=== PATIENT | female | born 1965 | race Caucasian/White ===

== ENCOUNTER 2018-09-11 08:26 | Emergency (ER) | payer OTHER ==
[~2018-09-11] VITALS: Ht 152.4 cm; Wt 53.5 kg
[2018-09-11 08:28] VITALS: BP 132/76
== END 2018-09-11 10:56 | disposition home or self-care (01) ==
LOC: ED 10:13
DX: S40.011A Contusion of right shoulder, initial encounter (principal); W18.39XA Other fall on same level, initial encounter; Y93.89 Activity, other specified; Y92.830 Public park as the place of occurrence of the external cause; Y99.8 Other external cause status
CPT/HCPCS: 73030; 73060; 96372; 99283; J1885

== ENCOUNTER 2019-01-29 12:19 | Day surgery (SDC) | payer OTHER ==
[~2019-01-29] VITALS: Ht 152.4 cm; Wt 51.0 kg
[~2019-01-29 12:19] MED LIST: LIDOCAINE/PF 1%-EPI 1:200K, 30 ML ONE
[2019-01-29 12:51] VITALS: BP 164/79
[2019-01-29] MEDS ORDERED: LACTATED RINGERS 1,000 ML IV SCH (12:56)
[2019-01-29] MEDS ORDERED: TRAZ50TA66 PO (13:05)
[2019-01-29] MEDS ORDERED: FLUO20CA19 PO (13:05)
[2019-01-29] MEDS ORDERED: CELE200C PO (13:05)
[2019-01-29] MEDS ORDERED: NAPR-685 PO (13:05)
[2019-01-29] MEDS ORDERED: MIDAZOLAM 1 MG/ML, 2ML ONE (13:28)
[2019-01-29] MEDS ORDERED: ALPR1TAB2 PO (13:28)
[2019-01-29] MEDS ORDERED: METH750T2 PO (13:28)
[2019-01-29] MEDS ORDERED: FENTANYL PF 250 MCG/5ML ONE (13:28)
[2019-01-29] MEDS ORDERED: DEXAMETHASONE 4 MG/ML, 1ML ONE (15:27)
[2019-01-29] MEDS ORDERED: ONDANSETRON 2MG/ML, 2ML ONE (15:27)
[2019-01-29] MEDS ORDERED: SUCCINYLCHOLINE 20 MG/ML, 10ML ONE (15:27)
[2019-01-29] MEDS ORDERED: PROPOFOL 10 MG/ML, 20ML ONE (15:27)
[2019-01-29] MEDS ORDERED: [UNRECOGNIZED DRUG - OTHER] IM ONE (15:27)
[2019-01-29] MEDS ORDERED: CEFAZOLIN 1,000 MG ONE (15:27)
[2019-01-29] MEDS ORDERED: CLINDAMYCIN 150 MG/ML, 6ML ONE (15:36)
[2019-01-29] MEDS ORDERED: KETOROLAC 30 MG/1 ML IV PRN (16:00)
[2019-01-29] MEDS ORDERED: OXYcodone 5 MG/5 ML ORAL.SOL UDC PO PRN (16:00)
[2019-01-29] MEDS ORDERED: hydrALAzine 20 MG/ML, 1ML IV PRN (16:00)
[2019-01-29] MEDS ORDERED: MEPERIDINE/PF 25MG/0.5ML IVPush PRN (16:00)
[2019-01-29] MEDS ORDERED: FENTANYL PF 100 MCG/2ML IV PRN (16:00)
[2019-01-29] MEDS ORDERED: METOCLOPRAMIDE 5 MG/ML, 2ML IV PRN (16:00)
[2019-01-29] MEDS ORDERED: PROMETHAZINE 25 MG/ML, 1ML IV PRN (16:00)
[2019-01-29] MEDS ORDERED: HYDROmorphone 1 MG/ML, 1ML INJ IV PRN (16:00)
[2019-01-29] MEDS ORDERED: ALBUTEROL SULFATE 2.5 MG/3 ML NPPB PRN (16:00)
[2019-01-29] MEDS ORDERED: LABETALOL 5MG/ML, 20ML IV PRN (16:00)
[2019-01-29] MEDS ORDERED: ONDANSETRON 2MG/ML, 2ML IVPush PRN (16:00)
[2019-01-29] MEDS ORDERED: FENTANYL PF 100 MCG/2ML ONE (17:09)
[2019-01-29] MEDS ORDERED: MEPERIDINE/PF 25MG/ML,1ML ONE (17:20)
[2019-01-29] MEDS ORDERED: OXYcodone 5 MG/5 ML ORAL.SOL UDC ONE (17:20)
== END 2019-01-29 20:30 | disposition home or self-care (01) ==
LOC: OUT 12:19 → 4NE 18:14 → OUT 20:30
PROVIDERS: ATTEND Orthopaedic Surgery
DX: S46.011A Strain of muscle(s) and tendon(s) of the rotator cuff of right shoulder, initial encounter (principal); S43.431A Superior glenoid labrum lesion of right shoulder, initial encounter; M75.51 Bursitis of right shoulder; M65.811 Other synovitis and tenosynovitis, right shoulder; Z79.891 Long term (current) use of opiate analgesic; Z79.899 Other long term (current) drug therapy; Z87.891 Personal history of nicotine dependence; Z98.890 Other specified postprocedural states; X58.XXXA Exposure to other specified factors, initial encounter; Y93.89 Activity, other specified; Y92.89 Other specified places as the place of occurrence of the external cause; Y99.8 Other external cause status
CPT/HCPCS: 23430; 29823; 29826; 29827; 64415; C1713; J0330; J0690; J1100; J2175; J2250; J2405; J2704; J3010; J3490; G0378